=== PATIENT | male | born 1990 | race Caucasian/White ===

== ENCOUNTER 2016-12-14 03:19 | Emergency (ER) | payer BC ==
[2016-12-14 03:29] VITALS: BMI 24.4
--- NOTE | 2016-12-14 03:29 | PDOC ---
History of Present Illness - General Chief Complaint: Pain, Acute Stated Complaint: ABDOMINAL PAIN Time Seen by Provider: 12/14/16 03:23 - History of Present Illness Initial Comments: 12/14/16 03:44 This otherwise healthy 26-year-old man presents with a one-day history of progressive right lower quadrant abdominal discomfort. Patient first noted mild pressure like feeling in the right lower quadrant approximately noontime today. Patient had had normal bowel movement about an hour prior to that. He noted a decrease in appetite and ate a small amount for lunch. For the remainder of the day he has not had nausea and vomiting but appetite has been poor. He denies fevers/chills. He slept in the early evening and awakened with more severe pain a few hours prior to presentation. Pain is worse with sudden movements and better when he leans forward. He also has noted tenderness in the area stating that he felt pain when he fastened his seatbelt in his car on the way over to the ER. Patient has a history of sensitivity to acidic foods/caffeine/nicotine with excessive bloating/"gassiness". Has not needed treatment for this with dietary discretion usually helpful for symptoms. PMH ADHD No history of surgical procedures Medications Adderall No known ALLERGIES Past History - Past Medical History Allergies/Adverse Reactions: Allergies Allergy/AdvReac Type Severity Reaction Status Date / Time No Known Allergies Allergy Unverified 12/14/16 03:25 Home Medications: Ambulatory Orders Dextroamphetamine/Amphetamine [Adderall Xr 30 mg Capsule] 30 mg PO DAILY Review of Systems - Review of Systems Able to Perform ROS?: Yes Comments:: 12 point review of systems is negative except for what is noted in the history of present illness *Physical Exam - Physical Exam Comments: GENERAL:Adult male, alert and oriented 3, in mild distress secondary to right lower abdominal pain HEAD: No signs of trauma EYES: PERRLA, EOMI, sclera anicteric, conjunctiva clear ENT: Auricles normal inspection, hearing grossly normal, nares patent, oropharynx clear without exudates. Moist mucosa NECK: Normal ROM, supple, no lymphadenopathy, JVD, or masses LUNGS: Breath sounds clear and equal. No wheezes, and no crackles HEART: Regular rate and rhythm, normal S1 and S2, no murmurs, rubs or gallops ABDOMEN: Soft, hypoactive bowel sounds; no distention; no involuntary guarding No masses palpable; moderate direct tenderness to palpation of right lower quadrant with positive Rovsing sign No CVA tenderness EXTREMITIES: Normal range of motion, no edema. No clubbing or cyanosis. No cords, erythema, or tenderness NEUROLOGICAL: Cranial nerves II through XII grossly intact. Normal speech, normal gait SKIN: Warm, Dry, normal turgor, erythematous papules of the torso in pattern consistent with pityriasis rosea ED Treatment Course - LABORATORY CBC & Chemistry Diagram: 12/14/16 03:45 12/14/16 03:45 Progress Note - Progress Note Progress Note: This 26-year-old man presents with a one-day history of progressive right lower quadrant pain. On presentation, patient has pain with movement and deep breathing in the area of the right lower quadrant. Exam shows moderate direct tenderness and positive Rovsing sign. No other peritoneal signs present. No masses palpated. CBC/chemistry profile/urinalysis sent 1 L normal saline given intravenously. Patient will have oral contrast for abdominal/pelvic CT to evaluate for acute appendicitis. Patient preferred not to have any medication for pain and denied nausea currently. Laboratory evaluation is normal without elevation of white blood cell count or other abnormality in CBC or chemistry profile. Urinalysis is normal without hematuria or evidence of stones/ urinary tract infection. Medical Decision Making - Medical Decision Making 12/14/16 07:09 Patient felt somewhat better after drinking oral contrast with decreased discomfort in the right lower quadrant. Abdominal/pelvic CT performed; awaiting interpretation. Case signed out to Dr. Mancuso at end of shift. CT negative for acute appendicitis; possible rectosigmoid colonic wall thickening present. *DC/Admit/Observation/Transfer Diagnosis at time of Disposition: Abdominal pain - Discharge Dispostion Disposition: HOME Condition at time of disposition: Stable - Patient Instructions Printed Discharge Instructions: DI for Abdominal Pain-Adult Additional Instructions: light diet, advance diet slowly return to ER if you have recurrent pain or develop fever/vomiting
[2016-12-14] MEDS ORDERED: SODIUM CHLORIDE 1,000 ML IV STA (03:43)
[2016-12-14 04:09] LABS: BASOPHIL 0.5 % (0-2.0); EOSINOPHIL 1.5 % (0-4.5); MCH 29.3 pg (25.7-33.7); MEAN CELL VOLUME 88.6 fl (80-96); MEAN PLT VOLUME 8.9 fl (7.5-11.1); NEUTROPHILS 58.1 % (42.8-82.8); PLATELET COUNT 239 K/MM3 (134-434); RDW 12.4 % (11.9-15.9); WHITE BLOOD COUNT 7.8 K/mm3 (4.0-10.0)
[2016-12-14 04:29] LABS: URINE APPEARANCE CLEAR; URINE BILIRUBIN NEGATIVE (NEGATIVE); URINE BLOOD NEGATIVE (NEGATIVE); URINE COLOR YELLOW; URINE GLUCOSE (UA) NEGATIVE (NEGATIVE); URINE KETONE NEGATIVE (NEGATIVE); URINE LEUK ESTERASE NEGATIVE (NEGATIVE); URINE NITRITE NEGATIVE (NEGATIVE); URINE UROBILINOGEN NEGATIVE E.U./dl (0.2-1.0)
[2016-12-14 04:30] LABS: URINE PROTEIN 1+ (NEGATIVE)
[2016-12-14 04:43] LABS: ALBUMIN 4.9 g/dl (3.4-5.0); ANION GAP 9 (8-16); BILIRUBIN,TOTAL 0.8 mg/dL (0.2-1.0); CALCIUM 9.3 mg/dL (8.5-10.1); CO2 31 mmol/L (21-32); COCKROFT - GAULT 108.77; CREATININE 1.2 mg/dL (0.7-1.3); GLUCOSE,RANDOM 105 mg/dL (74-106); SGOT/AST 19 U/L (15-37); SGPT/ALT 29 U/L (12-78); TOT PROT 7.6 g/dl (6.4-8.2)
[2016-12-14 04:44] LABS: ALK PHOS 64 U/L (45-117)
[2016-12-14 04:50] LABS: INR 1.09 (0.82-1.09)
[2016-12-14 07:03] VITALS: BP 139/89; PULSE 64; TEMP 98.6
== END 2016-12-14 08:27 | disposition home or self-care (01) ==
LOC: FER 03:19
PROC: 3E0337Z Introduction of Electrolytic and Water Balance Substance into Peripheral Vein, Percutaneous Approach (ICD-10-PCS; principal; 2016-12-14)
DX: R10.31 Right lower quadrant pain (principal); F90.9 Attention-deficit hyperactivity disorder, unspecified type
CPT/HCPCS: 36415; 74177-TC; 80053; 81003; 81015; 85025; 85610; 99282-25